=== PATIENT | male | born 1980 | race African-American/Black ===

== ENCOUNTER 2021-09-19 21:51 | Emergency (ER) | payer SELFPAY ==
[~2021-09-19] VITALS: Ht 167.6 cm; Wt 91.6 kg
--- NOTE | 2021-09-19 21:56 | NUR ---
PATIENT BIB PD FOR MEDICAL CLEARANCE AFTER MINOR TC PRIOR TO BOOKING AT LONGTERM. NO COMPLAINTS OR PAIN FROM PATIENT, NO HISTORY, ALLERGIES, OR MEDICATIONS. PATIENT AMBULATING WITHOUT ISSUE, PLACED IN HALLWAY BED.
--- NOTE | 2021-09-19 22:10 | NUR ---
ERNESTINE GARCIA AT BEDSIDE EXAMINING PATIENT.
[2021-09-19 22:50] VITALS: BP_SYST 155
--- NOTE | 2021-09-19 22:50 | NUR ---
Patient given written and verbal discharge instructions and verbalizes understanding. ER MD GARCIA discussed with patient the results and treatment provided. Patient in stable condition. ID arm band removed. Patient educated on pain management and to follow up with PMD. Pain Scale 0/10. Opportunity for questions provided and answered. Medication side effect fact sheet provided.
== END 2021-09-19 22:50 ==
LOC: SED 21:51
DX: Z02.89 Encounter for other administrative examinations (principal)
CPT/HCPCS: 99283